=== PATIENT | female | born 1945 | race Caucasian/White ===

== ENCOUNTER 2016-09-22 11:54 | Inpatient (IN) ==
[2016-09-22 13:53] LABS: BASO% 0.2 % (0.0-0.8); EOS# 0.02 X1000 (0.0-0.7); EOS% 0.2 % (0.0-10.0); HEMATOCRIT 44.5 % (37.0-47.0); HEMOGLOBIN 16.7 g/dL (12.0-16.0); IMM GRAN# 0.24 X1000 (0.0-0.04); IMM GRAN% 2.1 % (0.0-0.5); LYMPH# 1.34 X1000 (1.2-3.4); LYMPH% 11.6 % (20.5-51.1); MANUAL DIFF NEEDED? NO; MCH 32.6 PG (27-31); MCHC 37.5 g/dL (33-37); MCV 86.7 FL (81-99); MONO# 2.01 X1000 (0.11-0.59); MONO% 17.4 % (1.7-9.3); NEUT% 68.5 % (42.2-75.2); PLT 399 X1000 (130-400); RBC 5.13 XMIL (4.2-5.4)
[2016-09-22 14:05] LABS: ALBUMIN 3.7 g/dL (3.5-5.0); CALCIUM 8.9 mg/dL (8.8-10.2); POTASSIUM 2.7 mmol/L (3.5-5.1); TOTAL BILIRUBIN 0.42 mg/dL (0.20-1.00); TOTAL PROTEIN 7.2 g/dL (6.3-8.3)
--- NOTE | 2016-09-22 16:35 | PROVIDER DOCUMENTATION ---
This chart was entered by Sol Aguilera, acting as scribe for Brian Martínez MD. HPI-Abdominal Pain/GI Problem - General Chief Complaint: Abdominal Pain Stated Complaint: N/V/D Time Seen by Provider: 09/22/16 14:26 Source: patient, family Allergies/Adverse Reactions: Patient Allergies Allergy/AdvReac Type Severity Reaction Status Date / Time Sulfa (Sulfonamide AdvReac SWELLING Verified 06/18/14 08:36 Antibiotics) Home Medications: Home Medication List Medication Instructions Recorded Confirmed Last Taken Type Aspirin [Aspirin EC] 2 tab PO DAILY 06/11/14 06/18/14 06/18/14 History Cholecalciferol (Vitamin D3) 2,000 unit PO DAILY 06/11/14 06/18/14 06/18/14 History [D3-2000] Cyanocobalamin (Vitamin B-12) 2,000 mcg PO DAILY 06/11/14 06/18/14 06/18/14 History [Vitamin B-12] Fluoxetine [Prozac] 20 mg PO TID 06/11/14 06/18/14 06/18/14 History Gabapentin 300 mg PO HS 06/11/14 06/18/14 06/18/14 History Levothyroxine Sodium 100 mcg PO DAILY 06/11/14 06/18/14 06/18/14 History Lisinopril/Hydrochlorothiazide 1 each PO DAILY 06/11/14 06/18/14 06/18/14 History [Lisinopril-Hctz 20-12.5 mg Tab] Metformin HCl 850 mg PO BID 06/11/14 06/18/14 06/18/14 History [place]-3 Fatty Acids [Fish Oil] 1,000 mg PO DAILY 06/11/14 06/18/14 06/18/14 History Omeprazole 20 mg PO DAILY 06/11/14 06/18/14 06/18/14 History Pravastatin Sodium 20 mg PO DAILY 06/11/14 06/18/14 06/18/14 History Tramadol HCl [Ultram] 50 mg PO DIRECTED 06/18/14 06/18/14 06/17/14 History - History of Present Illness-ABD Nature of Presenting Problems: pt is a 71 year old female present to the Er with cc of abdominal pain, n,v, diarrhea for the past week. family at bedside. Family states that last week pt woke up with runny green diarrhea and it smelled very bad. Pt sister states she was sick as well but she got better by friday and they do not live together. Pt family also states she was seen by her PCP on Friday and was given Flagyl ABX. Pt has hx of DM and takes metformin but family states she is uncontrolled and her sugar bottoms out often. Family states she has only eating 2 oz of jello and that was yesterday. denies chest pain, cough or fever Abdominal Pain Onset Location: reports: generalized abdomen Pain Radiation: reports: no radiation Quality of Pain: reports: aching Severity in ED: reports: moderate Onset/Duration: reports: 1 week ago Timing: reports: still present Activities at Onset: reports: none Exposure to sick contacts?: Yes Modifying Factors: improves with: nothing Associated Symptoms: reports: diarrhea, nausea, vomiting. denies: fever/chills Last BM: other (Diarrhea for 1 week) Dark Stools Present?: reports: none noticed Rectal Bleeding: reports: none Rectal Pain: reports: none Emesis Description: reports: none Bruising or Bleeding Gums?: No Similar Symptoms Previously?: Yes Recently seen or treated by another doctor?: Yes Review of Systems - Adult - REVIEW OF SYSTEMS - ADULT Constitutional: denies: chills, fever Eyes: denies: discharge, dry eyes, decreased vision, blurred vision Ears, Nose, Mouth & Throat: reports: no symptoms reported Cardiovascular: denies: chest pain, edema, heart murmur Respiratory: denies: cough Gastrointestinal: reports: abdominal pain, diarrhea, nausea, vomiting Genitourinary: denies: dysuria, discharge, frequency, flank pain Musculoskeletal: reports: no symptoms reported Integumentary: reports: no symptoms reported Neurological: reports: no symptoms reported Psychiatric: reports: no symptoms reported Endocrine: reports: no symptoms reported Hematologic/Lymphatic: reports: no symptoms reported Allergic/Immunologic: reports: no symptoms reported All Other Systems: Reviewed and Negative Past History - Adult - PAST MEDICAL HISTORY-ADULT Review of Records: reports: Old Records Reviewed, Nursing Assessment Review Major Childhood Illnesses: reports: denies history Cardiovascular: reports: HTN Respiratory: reports: denies history Neurological: reports: denies history Psychiatric: reports: denies history Endocrine/Immune: reports: Diabetes - PRIOR SURGERIES/PROCEDURES Surgical/Procedure History: reports: reviewed, not pertinent - IMMUNIZATION STATUS Childhood Immunizations: See Nurse Assessment Flu Vaccine: See Nurse Assessment - FAMILY HISTORY Family History: reviewed, not pertinent Physical Exam-General - PHYSICAL EXAM-ADULT Initial Vital Signs Reviewed: Yes - CONSTITUTIONAL General Appearance: alert, mild distress - EYES Eyes: PERRL/EOMI, pink conjunctivae - NECK Neck: non-tender, full range of motion - RESPIRATORY Respiratory: chest non-tender, lungs clear, normal breath sounds, no pleuratic chest pain, no respiratory distress, no accessory muscle use - CARDIOVASCULAR Cardiovascular: no edema, no gallop, no JVD - GASTROINTESTINAL (ABDOMEN) Abdominal Exam: soft, tenderness (Generalized abdomen TTP) - MUSCULOSKELETAL Extremity: non-tender - SKIN Integumentary: normal color, warm/dry - NEUROLOGIC Neurologic: grossly normal - PSYCHIATRIC Psych/Mental Status: normal mood/affect, normal thought content, normal thought process, oriented x 3 Progress - PLAN OF CARE/RESULTS Progress/Plan/Lab Results: Vital Signs - 8 hr 09/22/16 12:27 Temperature 97.4 F L Pulse Rate 93 H Respiratory Rate 16 Blood Pressure 101/77 O2 Sat by Pulse Oximetry 100 Laboratory Results - last 24 hr 09/22/16 09/22/16 12:45 12:45 WBC 11.56 H RBC 5.13 Hgb 16.7 H Hct 44.5 MCV 86.7 MCH 32.6 H MCHC 37.5 H RDW Std Deviation 12.0 Plt Count 399 MPV 9.0 Immature Gran % (Auto) 2.1 H Neut % (Auto) 68.5 Lymph % (Auto) 11.6 L [place] % (Auto) 17.4 H Eos % (Auto) 0.2 Baso % (Auto) 0.2 Immature Gran # (Auto) 0.24 H Neut # (Auto) 7.93 H Lymph # (Auto) 1.34 [place] # (Auto) 2.01 H Eos # (Auto) 0.02 Baso # (Auto) 0.02 Sodium 119 L* Potassium 2.7 L Chloride 73 L Carbon Dioxide 19 L Anion Gap 27 BUN 22 Creatinine 1.0 H Estimated GFR/1.73 m2 55 BUN/Creatinine Ratio 22 Glucose 119 H Calculated Osmolality 245 Calcium 8.9 Total Bilirubin 0.42 AST 20 ALT 12 Alkaline Phosphatase 106 H Total Protein 7.2 Albumin 3.7 Globulin 3.5 Albumin/Globulin Ratio 1.1 Amylase 74 Lipase 56 Orders Category Date Time Status Saline Loc DIRECTED Care 09/22/16 12:31 Active NPO Diet 09/22/16 12:31 Active AMYLASE [CHEM] Stat Lab 09/22/16 12:45 Completed CBC WITH ELECTRONIC DIFF [HEME] Stat Lab 09/22/16 12:45 Completed COMPREHENSIVE METABOLIC PANEL [CHEM] Stat Lab 09/22/16 12:45 Completed LIPASE [CHEM] Stat Lab 09/22/16 12:45 Completed URINALYSIS W/POSS RFLX CULT-1 [URINALYSIS] Stat Lab 09/22/16 12:31 Uncollected Result Diagrams: 09/22/16 12:45 09/22/16 12:45 - CONSULTS/PCP/HOSPITALIST Notification #1 *Consult/PCP/Hospitalist*: Dr. Davis Time Discussed: 16:32 Consult Disposition: Will see in ED, Admit Departure - Departure Date of Disposition Decision: 09/22/16 Time of Disposition Decision: 16:32 DIAGNOSIS: Diarrhea, Dehydration, Hyponatremia, Hypokalemia Disposition: ADMITTED INPATIENT 09 Certified Medical Emergency: Emergent Condition: Stable Referrals and Follow-Ups: Mil Barrera [Primary Care Provider] - - Critical Care Note This patient required my direct & personal management of CC.: No This chart was documented by the indicated scribe, (Sol Aguilera) and accurately reflects the services I performed and decisions made by me, Brian Martínez MD, as attested by the provider's signature.
[2016-09-22] MEDS ORDERED: KLOR-CON PO ONE (16:36)
[2016-09-22] MEDS ORDERED: NS 1,000 ML IV ONE (16:36)
[2016-09-22] MEDS ORDERED: ZOFRAN IV ONE (16:36)
[2016-09-22 18:49] LABS: URINE MICRO REVIEW NEEDED? NO; URINE SOURCE CLEAN CATCH
[2016-09-22 18:52] LABS: BILIRUBIN URINE NEGATIVE (NEGATIVE); BLOOD URINE NEGATIVE (NEGATIVE); COLOR YELLOW; GLUCOSE URINE NEGATIVE (NEGATIVE); LEUKOCYTES URINE MODERATE (NEGATIVE); NITRITE URINE NEGATIVE (NEGATIVE); PROTEIN URINE NEGATIVE (NEGATIVE); SP GRAVITY URINE 1.005; TURBIDITY URINE CLEAR (CLEAR); UROBILINOGEN URINE NORMAL (NORMAL)
[2016-09-22 18:54] LABS: UR EPITHELIAL CELLS <10 /HPF (<10); URINE BACTERIA NEGATIVE /HPF; URINE CULTURE NEEDED? YES; URINE RBC <10 /HPF (<10)
[2016-09-22] MEDS ORDERED: POTASSIUM CHLORIDE 20 MEQ/SWI 20 MEQ/100 ML IVPB IV SCH (19:00)
[2016-09-22] MEDS ORDERED: ULTRAM PO PRN (19:44)
[2016-09-22] MEDS ORDERED: HUMULIN R SUBQ ONE (19:44)
[2016-09-22] MEDS: NS 1,000 ML IV SCH (21:13)
[2016-09-22] MEDS: NEURONTIN PO SCH (21:13)
[2016-09-22] MEDS: LOVENOX SUBQ SCH (21:13)
[2016-09-22] MEDS: NORCO-7.5 PO PRN (21:13)
[2016-09-23] MEDS: FLAGYL 500 MG/NS 500 MG/100 ML IVPB IV SCH ×3 (00:30→15:23)
--- NOTE | 2016-09-23 00:49 | HISTORY AND PHYSICAL ---
CHIEF COMPLAINT: Diarrhea for 2 weeks, and unable to eat and drink. HISTORY OF PRESENT ILLNESS: The patient is a 71-year-old white female, who presented to the emergency room with 2 weeks' history of not able to eat and drink. The patient saw her primary care physician and was started on Flagyl, with a presumption of C. difficile. The patient continued to have diarrhea, and has not been able to take anything by mouth, including her Flagyl. She continued to have green stool, at least 10-20 times a day. The patient reports having a positive C. difficile contact from her siblings, who were in a residential who she has been caring for, and who had C. difficile recently. She denies having any fever or chills, although her daughter stated that she has kept her room as cold as she could keep it. She denies having any chest pain or shortness of breath. She does report having significant nausea and vomiting, has not been able to eat or drink anything, has not been able to keep any of her medications down. The patient was taking Zofran that was given by her primary care physician, Dr. Barrera, which seemed to help her nausea to some degree. She does have significant abdominal discomfort. Nothing seemed to make it better or make it worse. PAST MEDICAL HISTORY: 1. Depression. 2. Peripheral neuropathy. 3. Type 2 diabetes. 4. Hypertension. 5. GERD. 6. Hyperlipidemia. 7. Arthritis. PAST SURGICAL HISTORY: The patient has had her gallbladder removed, had a hysterectomy. She had several back surgeries. ALLERGIES: The patient is allergic to sulfa drugs. FAMILY HISTORY: Reviewed and were noncontributory. SOCIAL HISTORY: She denied tobacco, alcohol, or drugs. HOME MEDICATIONS: 1. Aspirin 81 mg p.o. 2 tabs daily. 2. Vitamin D 2000 international units daily. 3. B12 2000 mcg p.o. daily. 4. Prozac 20 mg p.o. once a day. 5. Gabapentin 300 mg at bedtime. 6. Levothyroxine 100 mcg p.o. daily. 7. Zestoretic 1 tablet p.o. daily. 8. Metformin 850 one tablet p.o. daily. 9. [place]-3 one tablet p.o. daily. 10. Omeprazole 20 mg p.o. daily. 11. Pravastatin 20 mg p.o. at bedtime. 12. Ultram 50 mg p.o. daily. REVIEW OF SYSTEMS: Twelve systems were reviewed and were negative, except for what is mentioned in the HPI. PHYSICAL EXAMINATION: VITAL SIGNS: Blood pressure 139/81, pulse of 66, respirations 27, temperature of 99. GENERAL APPEARANCE: Thin white female in moderate distress. HEENT: Anicteric sclerae,, clear conjunctivae. NECK: Supple. No JVD. No bruit. CARDIOVASCULAR: S1, S2. Normal rate and rhythm. No murmur, rubs, or gallops. PULMONARY: Clear to auscultation bilaterally. GASTROINTESTINAL: Mildly tender to palpations throughout. Hyperactive bowel sounds. MUSCULOSKELETAL: No clubbing, cyanosis, or edema. LABORATORY DATA: White count 11.56, hemoglobin 16.7, hematocrit of 44.5, platelets of 399,000. Chemistries: Sodium 119, potassium 2.7, chloride 73, carbon dioxide 19, BUN 22, creatinine 1.0. Liver function tests within normal limits. Glucose 119. ASSESSMENT AND PLAN: This is a 71-year-old white female admitted to the hospital for abdominal pain, diarrhea, dehydration, and electrolyte abnormalities. 1. Diarrhea, concerning for C. difficile. We started treating the patient for C. difficile. We will send stool for antigen and stool for culture. 2. Severe dehydration, with hypokalemia and hyponatremia. Will hold her Zestoretic. Start the patient on IV fluids. We will replete her potassium. Will check her chemistry in the morning. 3. Diabetes type 2. Start the patient on sliding scale insulin. 4. Hypertension. Will start the patient on her lisinopril, but will hold her diuretics. 5. Hyperlipidemia. We will continue her on Pravachol and her fish oil. 6. Hypothyroidism. Continue Synthroid. 7. Deep venous thrombosis prophylaxis. Put the patient on Lovenox. CODE STATUS: The patient is a full code. cc: Mil Barrera MD
--- NOTE | 2016-09-23 06:06 | Diag Imaging Result Doc PS360 ---
EXAM: ABDOMEN/PELVIS W/WO CONTRAST HISTORY: abd pain TECHNIQUE: COMPARISON: None. FINDINGS: Without: No renal stones. No hydronephrosis. Mild thickening to the small bowel holliday distally in the right lower quadrant. Questionable thickening of the transverse colon in the left upper quadrant. Questionable mild colonic wall thickening in the descending colon. With contrast: The gallbladder has been removed. There has been a prior contrast bypass procedure. Normal spleen, liver, pancreas, and adrenal glands. No renal mass. Prominent atherosclerosis. No aortic aneurysm. The uterus is been removed. No pelvic mass. Urinary bladder is moderately distended and appears normal. It is low lying. IMPRESSION: 1.Enteritis and possible colitis 2.Cholecystectomy, gastric bypass, and hysterectomy 3.Pelvic floor weakening 4.A preliminary report was given at 11:13 PM Electronically signed by Carlos An 09/23/2016 6:04 AM
--- NOTE | 2016-09-23 07:45 | Diag Imaging Result Doc PS360 ---
FLAT/UPRIGHT ABD/1 VIEW CHEST - 09/22/2016 INDICATION: N/V/diarrhea/abd pain TECHNIQUE: Three views COMPARISON: None FINDINGS: The chest is clear. There is a nonobstructive bowel gas pattern. No free air or abnormal calcifications. IMPRESSION: Negative exam. Electronically signed by Sreedhar Sanders 09/23/2016 7:42 AM
[2016-09-23 07:50] LABS: HEMATOCRIT 37.8 % (37.0-47.0); HEMOGLOBIN 14.2 g/dL (12.0-16.0); MCH 32.7 PG (27-31); MCHC 37.6 g/dL (33-37); MCV 87.1 FL (81-99); MPV 8.8 FL (7.4-10.4); RBC 4.34 XMIL (4.2-5.4)
[2016-09-23 07:59] LABS: AGAP 20; BUN 10 mg/dL (8-22); CALCIUM 8.1 mg/dL (8.8-10.2); CHLORIDE 84 mmol/L (98-107); COSMO 250; POTASSIUM 2.7 mmol/L (3.5-5.1); SODIUM 125 mmol/L (136-145); TCO2 21 mmol/L (25-35)
[2016-09-23] MEDS: PROZAC PO SCH (08:19)
[2016-09-23] MEDS: SYNTHROID PO SCH (08:19)
[2016-09-23] MEDS: PRAVACHOL PO SCH (08:19)
[2016-09-23] MEDS: NS 1,000 ML IV SCH ×3 (08:20→23:07)
[2016-09-23] MEDS: NORCO-7.5 PO PRN ×2 (08:26→20:42)
--- NOTE | 2016-09-23 15:41 | PROGRESS NOTE ---
DATE: 09/23/2016 SUBJECTIVE.: The patient reports feeling better with diarrhea 3 times per day today only. No fever or chills reported. OBJECTIVE: Vital Signs: Temperature 98.1 degrees, heart rate 109, respiratory rate 18, blood pressure 117/53, O2 saturation 95% on room air. General Examination: This is a 71-year-old female lying in bed in no acute distress. HEENT: Head is normocephalic, atraumatic. Anicteric sclerae and pale conjunctivae. Mucous membranes moist. Neck: Supple. No JVD noted. No carotid bruits. No thyromegaly. Cardiovascular: S1, S2 heard. No murmurs, gallops, or rubs. Regular rate and rhythm. Respiratory: Clear bilaterally to auscultation. No work of breathing or using accessory muscles. Abdomen: Soft. Diffuse tenderness to palpation but there is no signs of peritoneal irritation. Hyperactive bowel sounds. Extremities: No clubbing, cyanosis or edema. Peripheral pulses present in both legs. Neurological: Patient alert, oriented x3. Able to move 4 extremities. Cranial nerves 2-12 grossly normal. LABORATORY DATA: White cell count 11.39. Sodium 134, potassium 2.7, chloride 84, bicarbonate 21, creatinine 0.7. ASSESSMENT AND PLAN: 1. Diarrhea. We have ordered a C. difficile test but unfortunately it seems like the sample was not recollected although patient reports that she did. In any case, the patient has been on IV fluids and metronidazole. Will continue with the same management. 2. Hyponatremia. So the sodium is better from 119 to 125. Will continue with IV fluids. 3. Hypokalemia. Potassium is the same 2.7. We are going to replete this with potassium. 4. Hyperlipidemia. Will continue with Pravachol. 5. Hypothyroidism. Will continue with home doses of Synthroid. 6. Deep vein thrombosis prophylaxis on Lovenox. cc: Perry Angelo MD
[2016-09-23] MEDS: POTASSIUM CHLORIDE 60 MEQ in NS 500 ML IV SCH (16:23)
[2016-09-23] MEDS: LOVENOX SUBQ SCH (20:25)
[2016-09-23] MEDS: NEURONTIN PO SCH (20:25)
[2016-09-24] MEDS: FLAGYL 500 MG/NS 500 MG/100 ML IVPB IV SCH ×5 (01:00→19:00)
[2016-09-24] MEDS: POTASSIUM CHLORIDE 60 MEQ in NS 500 ML IV SCH ×4 (03:59→20:46)
[2016-09-24] MEDS: NORCO-7.5 PO PRN ×3 (05:48→20:45)
[2016-09-24] MEDS: SYNTHROID PO SCH ×2 (05:49→06:50)
[2016-09-24] MEDS: PROZAC PO SCH (08:46)
[2016-09-24] MEDS: PRAVACHOL PO SCH (08:46)
[2016-09-24] MEDS: NS 1,000 ML IV SCH ×3 (09:05→20:47)
[2016-09-24 11:35] LABS: BASO% 0.3 % (0.0-0.8); EOS# 0.05 X1000 (0.0-0.7); EOS% 0.5 % (0.0-10.0); HEMATOCRIT 33.9 % (37.0-47.0); HEMOGLOBIN 12.6 g/dL (12.0-16.0); IMM GRAN# 0.57 X1000 (0.0-0.04); IMM GRAN% 5.3 % (0.0-0.5); MCH 33.2 PG (27-31); MCHC 37.2 g/dL (33-37); MCV 89.4 FL (81-99); MONO# 1.57 X1000 (0.11-0.59); MONO% 14.7 % (1.7-9.3); MPV 8.5 FL (7.4-10.4); NEUT% 64.2 % (42.2-75.2); PLT 393 X1000 (130-400); RBC 3.79 XMIL (4.2-5.4)
[2016-09-24 11:37] LABS: MANUAL DIFF NEEDED? YES
[2016-09-24 11:59] LABS: AGAP 10; BUN 4 mg/dL (8-22); CALCIUM 7.2 mg/dL (8.8-10.2); CHLORIDE 97 mmol/L (98-107); COSMO 258; POTASSIUM 3.2 mmol/L (3.5-5.1); SODIUM 131 mmol/L (136-145); TCO2 24 mmol/L (25-35)
[2016-09-24 12:04] LABS: LYMPHS 16 % (21-51); MONO 9 % (1-9)
--- NOTE | 2016-09-24 14:41 | PROGRESS NOTE ---
DATE: 09/24/2016 SUBJECTIVE: The patient reports having had some rectal bleeding today, this morning. Not feeling dizzy. She is still having diarrhea, like 4-5 times per day and, yesterday, black stools were reported. OBJECTIVE: Vital Signs: Temperature 97.8 degrees, heart rate 69, respiratory rate 18, blood pressure 112/57, O2 saturation 98% on room air. General: This is a 71-year-old, female, lying in bed in no acute distress. HEENT: Head is normocephalic and atraumatic. Anicteric sclerae and pale conjunctivae. Mucous membranes dry. Neck supple. No JVD noted. No carotid bruits. No lymphadenopathy. No thyromegaly. Cardiovascular: S1, S2 heard. No murmurs, gallops, or rubs. Regular rate and rhythm. Respiratory: Clear bilaterally to auscultation. No work of breathing or using accessory muscles. Abdomen soft, nontender to palpation. Bowel sounds present. No organomegaly. Extremities: No clubbing, cyanosis, or edema. Peripheral pulses present in both legs. Neurologic: Patient is alert and oriented x3. Moves 4 extremities. Cranial nerves 2-12 grossly normal. LABORATORY DATA: 1. White cell count 10.6. Hemoglobin 12.6, hematocrit 33.9, platelets 393,000. Sodium 131, potassium 3.2, chloride 97, bicarb 24. BUN 4, creatinine 0.5. ASSESSMENT AND PLAN: 1. Acute gastroenteritis. Clostridium difficile returned negative. Patient is on Flagyl and Levaquin. It has been added today to her current treatment. We will see how this patient does. We will continue with IV fluids as well. 2. Hyponatremia. It is getting better. Today, it is 131. We will continue with the same management. 3. Hypokalemia. Patient's potassium is the patient's potassium is still low. We will provide potassium supplementation. 4. Hyperlipidemia. We will continue with Pravachol. 5. Hypothyroidism. We will continue with home doses of Synthroid. 6. Deep vein thrombosis prophylaxis with Lovenox. 7. Rectal bleeding. Because of this episode of bleeding, we prefer to have field sales consultant on board to see how this patient does. cc: Perry Angelo MD
[2016-09-24] MEDS: ZOFRAN IV PRN ×2 (18:26→21:42)
[2016-09-24] MEDS: NEURONTIN PO SCH (20:46)
[2016-09-24] MEDS: LEVAQUIN 750 MG in NS 150 ML IV SCH (20:46)
[2016-09-24] MEDS: PROTONIX IV SCH (21:42)
[2016-09-24] MEDS: SODIUM CHLORIDE 0.9% INJ SCH (21:42)
[2016-09-25] MEDS: NS 1,000 ML IV SCH ×4 (00:45→21:37)
[2016-09-25] MEDS: FLAGYL 500 MG/NS 500 MG/100 ML IVPB IV SCH ×4 (00:58→22:38)
[2016-09-25] MEDS: NORCO-7.5 PO PRN ×2 (05:32→17:20)
[2016-09-25] MEDS: ZOFRAN IV PRN (06:26)
[2016-09-25 06:51] LABS: BASO% 0.3 % (0.0-0.8); EOS# 0.12 X1000 (0.0-0.7); EOS% 1.1 % (0.0-10.0); HEMATOCRIT 33.2 % (37.0-47.0); HEMOGLOBIN 12.2 g/dL (12.0-16.0); IMM GRAN# 0.57 X1000 (0.0-0.04); LYMPH# 1.39 X1000 (1.2-3.4); LYMPH% 12.3 % (20.5-51.1); MANUAL DIFF NEEDED? YES; MCHC 36.7 g/dL (33-37); MCV 89.7 FL (81-99); MONO# 1.73 X1000 (0.11-0.59); MONO% 15.3 % (1.7-9.3); MPV 8.5 FL (7.4-10.4); PLT 390 X1000 (130-400)
[2016-09-25 06:59] LABS: AGAP 10; BUN 2 mg/dL (8-22); CALCIUM 7.1 mg/dL (8.8-10.2); CHLORIDE 99 mmol/L (98-107); COSMO 262; POTASSIUM 3.6 mmol/L (3.5-5.1); SODIUM 133 mmol/L (136-145); TCO2 24 mmol/L (25-35)
[2016-09-25 07:15] LABS: BANDS 14 % (0-1); LYMPHS 12 % (21-51); MONO 8 % (1-9)
--- NOTE | 2016-09-25 11:23 | CONSULTATION ---
DATE OF CONSULTATION: 09/24/2016 HISTORY OF PRESENT ILLNESS: A 71-year-old lady, presented with a 2-week history of anorexia, abdominal discomfort, and diarrhea for which she was started on Flagyl with a presumptive diagnosis of C. difficile colitis but with no response. She was having 10-20 stools a day and getting progressively weak. Was admitted for further evaluation. She had a CT scan done on admission which showed colitis. PAST MEDICAL HISTORY: Depression, neuropathy, type 2 DM, hypertension, GERD, arthritis. PAST SURGICAL HISTORY: Gallbladder removed, hysterectomy, back surgeries. ALLERGIES: Sulfa. FAMILY HISTORY: Negative for colitis or cancer. SOCIAL HISTORY: Does not smoke, drink, or use drugs. HOME MEDICATIONS: 1. Aspirin 81. 2. Vitamin D. 3. B12. 4. Prozac 20. 5. Gabapentin 300. 6. Levothyroxine 100 mcg daily. 7. Metformin 850 daily. 8. Omeprazole 20 daily. 9. Pravastatin 20 at bedtime. 10. Ultram 50 daily. REVIEW OF SYSTEMS: Twelve points are negative other than HPI. PHYSICAL EXAMINATION: Vital Signs: Physical examination revealed this lady laying in bed, looks weak. Blood pressure 130/80, pulse 66, respirations 27, temperature 99 degrees. General: Thin, white lady. Appears weak. HEENT: No scleral icterus. No conjunctival pallor. Mucosa dry. Neck: Supple. No JVD. Heart: S1, S2. No murmur. Pulmonary: Clear. Abdomen: Soft. Generally tender throughout. Hyperactive bowel sounds. Extremities: No cyanosis, clubbing. MATERIALS ASSISTANT: No focal neurological deficit. LABORATORY DATA: White count 11, hemoglobin 16.7, hematocrit 44.5, platelets normal. Sodium low at 119, potassium 2.7, chloride 73, glucose 119. IMPRESSION AND PLAN: 1. Diarrhea, on Flagyl, nonresponsive. 2. Colitis on the CT scan. 3. Severe dehydration and hemoconcentration with hypokalemia and hyponatremia. 4. Diabetes type 2. 5. Hypertension. 6. Hyperlipidemia. 7. Hypothyroidism. PLAN: I agree with Flagyl. We will check the C. difficile. We will also do endoscopy. If she does not show response, we may have to try her on vancomycin. Further evaluation depending on the endoscopy findings which we will decide tomorrow. cc: Cuauhtemoc Braun MD
[2016-09-25] MEDS: PROTONIX IV SCH ×2 (11:56→21:38)
[2016-09-25] MEDS: SODIUM CHLORIDE 0.9% INJ SCH ×2 (11:56→21:38)
[2016-09-25] MEDS ORDERED: XYLOCAINE-MPF 2% ONE (13:39)
[2016-09-25] MEDS ORDERED: DIPRIVAN 1% ONE (15:11)
--- NOTE | 2016-09-25 15:25 | OPERATIVE NOTE ---
PROCEDURE DATE: 09/25/2016 REFERRING PHYSICIAN: Hector Recinos MD PRIMARY CARE DOCTORS: Mil Barrera MD TITLE OF PROCEDURE: 1. Esophagogastroduodenoscopy. 2. Colonoscopy with cecal polypectomy and left colon biopsies. PREOPERATIVE DIAGNOSES: 1. Abdominal pain, nausea, vomiting, diarrhea, getting worse. Negative stool studies. 2. Previous history of Clostridium difficile colitis. 3. History of gastric bypass. 4. Reflux disease. POSTOPERATIVE DIAGNOSIS: 1. Normal esophagus and tongue. 2. Z-line is at 36 cm. 3. Evidence of gastric bypass, gastric pouch measuring 6 cm. 4. Gastroenteric anastomosis appears normal with visible staple mackey. Normal efferent loop of small intestine up to 20 cm past the anastomosis. 5. Evidence of stool in the right colon, cecum and ascending colon, thick stool which was lavaged. There was evidence of a polyp measuring 5 mm in the cecum which was removed with cold biopsy polypectomy. 6. Evidence of colitis starting at the transverse colon, extended all the way to the rectum in the form of erythema, friability, erosions, and superficial ulcerations, suggesting ulcerative colitis. 7. Internal hemorrhoids on retroflexion irritated, inflamed. ESTIMATED BLOOD LOSS: Minimal. COMPLICATIONS: None. ANESTHESIA: Monitored anesthesia care per the anesthesiologist. SPECIMEN: 1. Cecal polyp. 2. Left colon biopsies, random. 3. Stool specimen for Clostridium difficile PCR, stool culture, ova and parasites. OPERATION IN DETAIL: After informed consent from the patient, explaining the risks, benefits, indications, alternatives, the patient was taken for EGD and colonoscopy. The risks of the procedure, including infection, bleeding, pain, trauma to the surrounding structures, perforation, explained to the patient among others and she acknowledged understanding and agreed to procedure. The patient was brought to the OR, turned in the left position. A bite block was placed in patient mouth. After adequate monitored anesthesia, the upper endoscope was introduced through the oral vestibule all the way to the small intestine. The esophagus was normal the entire length, Z-line at 30 cm with evidence of gastric bypass. Gastric pouch measured 6 cm. The anastomosis appeared normal with no evidence of any ulcerations. There were visible staple mackey noted at the anastomosis. The afferent loop was examined at 20 cm past anastomosis which appeared normal. The air was aspirated as the scope was withdrawn. The patient turned around. Rectal exam was performed which revealed normal rectal tone. No masses were felt. The colonoscope was introduced and was traversed all the way to the cecum. Cecum was identified using landmarks, ileocecal valve and appendiceal orifice. There was evidence of 5 mm polyp sessile in the cecum which was removed using cold biopsy polypectomy. There was evidence of thick stool in the cecum, ascending colon, which was lavaged. Colitis was noted starting at transverse colon, and extended all the way to the rectum. This mucosa showed evidence of erythema, friability, erosions, and superficial ulcerations. This was biopsied randomly. Stool was also collected to send for stool studies. Retroflexion in the rectum revealed internal hemorrhoids which were inflamed. Grade 2. The air was aspirated as the scope was withdrawn. The patient tolerated the procedure and is currently monitored in recovery in stable condition. I discussed the findings with the patient's family in the waiting area and all questions. RECOMMENDATIONS: 1. The patient will be continued on proton pump inhibitors for now. 2. The patient will follow start on Culturelle 1 capsule p.o. b.i.d. for 6 days. 3. The patient will follow up with me in the clinic in 1 month after discharge. 4. We will continue patient on Flagyl for now for a total of 10 days. 5. We will check inflammatory bowel disease panel and follow the colon biopsy results. If the colon biopsy results are positive for ulcerative colitis, we may give her a course of Entocort 9 mg once daily for 3 months. 6. Further recommendations to follow pending the above. cc: MD Mil John MD Alexis R. Penot, MD
--- NOTE | 2016-09-25 16:41 | PROGRESS NOTE ---
DATE: 09/25/2016 SUBJECTIVE: Patient reports feeling fine. No episodes of bleeding at this time. OBJECTIVE: Vital Signs: Temperature 98.3 degrees, heart rate 67, respiratory 19, blood pressure 134/72, O2 saturation 97% on room air. General Examination: This is a 71-year-old, female lying in bed, in no acute distress. HEENT: Head is normocephalic, atraumatic. Anicteric sclerae and pale conjunctivae. Mucous membranes moist. Neck: Supple. No JVD noted. No carotid bruits. No lymphadenopathy. No thyromegaly. Cardiovascular: S1 and S2 heard. No murmurs, gallops, or rubs. Regular rate and rhythm. Respiratory: Clear bilaterally to auscultation. No work of breathing or using accessory muscles. Abdomen: Soft, nontender to palpation. Bowel sounds present. No organomegaly. Extremities: No clubbing, cyanosis, or edema. Peripheral pulses present in both legs. Neurological: Patient is alert and oriented x3. Able to move 4 extremities. Cranial nerves 2-12 grossly normal. LABORATORY DATA: White cell count 11.31, hemoglobin 12.2, hematocrit 33.2, platelets 390,000 with sodium 133. Rest of the BMP unremarkable. ASSESSMENT AND PLAN: 1. Acute gastroenteritis. C. difficile is negative. Because of rectal bleeding an endoscopy and colonoscopy has been ordered and actually did show colitis that is compatible with ulcerative colitis. In any case, recommendations from GI is to continue with Levaquin and with Flagyl to complete 10 days. The patient can be discharged from the hospital tomorrow. The patient will have a followup in the office with Dr. Andrade. 2. Hyponatremia is almost resolved. We will continue with IV fluids. 3. Hypokalemia resolved. 4. Hyperlipidemia. We will continue with Pravachol. 5. Hypothyroidism. Will continue with home doses of Synthroid. 6. Deep vein thrombosis prophylaxis with Lovenox. Actually this medication has been held because of the bleeding. cc: Perry Angelo MD
[2016-09-25] MEDS: PRAVACHOL PO SCH (17:20)
[2016-09-25] MEDS: SYNTHROID PO SCH (17:20)
[2016-09-25] MEDS: PROZAC PO SCH (17:20)
[2016-09-25] MEDS ORDERED: MIRALAX PO SCH (21:00)
[2016-09-25] MEDS ORDERED: ANUSOL-HC SUPP PR SCH (21:00)
[2016-09-25] MEDS: LEVAQUIN 750 MG in NS 150 ML IV SCH (21:38)
[2016-09-25] MEDS: NEURONTIN PO SCH (21:38)
[2016-09-25] MEDS: CULTURELLE PO SCH (21:38)
[2016-09-26] MEDS: ZOFRAN IV PRN ×2 (00:33→04:10)
[2016-09-26] MEDS: FLAGYL 500 MG/NS 500 MG/100 ML IVPB IV SCH ×2 (04:10→09:05)
[2016-09-26] MEDS: SYNTHROID PO SCH (06:29)
[2016-09-26 07:02] LABS: BASO% 0.2 % (0.0-0.8); EOS# 0.05 X1000 (0.0-0.7); EOS% 0.5 % (0.0-10.0); HEMOGLOBIN 11.3 g/dL (12.0-16.0); IMM GRAN# 0.49 X1000 (0.0-0.04); IMM GRAN% 5.1 % (0.0-0.5); LYMPH# 0.98 X1000 (1.2-3.4); LYMPH% 10.3 % (20.5-51.1); MANUAL DIFF NEEDED? YES; MCH 32.9 PG (27-31); MCHC 36.5 g/dL (33-37); MCV 90.4 FL (81-99); MONO% 12.6 % (1.7-9.3); MPV 8.3 FL (7.4-10.4); NEUT% 71.3 % (42.2-75.2); PLT 354 X1000 (130-400); RBC 3.43 XMIL (4.2-5.4)
[2016-09-26 07:32] LABS: AGAP 1; BUN 1 mg/dL (8-22); CHLORIDE 100 mmol/L (98-107); COSMO 256; POTASSIUM 3.8 mmol/L (3.5-5.1); SODIUM 130 mmol/L (136-145); TCO2 29 mmol/L (25-35)
[2016-09-26 07:33] LABS: BANDS 4 % (0-1); LYMPHS 6 % (21-51); MONO 10 % (1-9)
[2016-09-26 07:36] LABS: CALCIUM 6.8 mg/dL (8.8-10.2)
[2016-09-26] MEDS: SODIUM CHLORIDE 0.9% INJ SCH (09:05)
[2016-09-26] MEDS: PRAVACHOL PO SCH (09:05)
[2016-09-26] MEDS: PROTONIX IV SCH (09:05)
[2016-09-26] MEDS: PROZAC PO SCH (09:05)
[2016-09-26] MEDS: CULTURELLE PO SCH (09:05)
[2016-09-26] MEDS: NORCO-7.5 PO PRN ×2 (09:09→13:13)
[2016-09-26] MEDS ORDERED: ANUSOL-HC CREAM PR ONE (10:17)
[2016-09-26] MEDS: NS 1,000 ML IV SCH ×2 (10:57)
--- NOTE | 2016-09-26 11:49 | PROGRESS NOTE ---
DATE: 09/26/2016 SUBJECTIVE: Patient resting in bed. She complained of 4 loose small volume bowel movements since 4 a.m. this morning. Every time she goes to pee she passes a small amount of liquid stool. Sedimentation rate is 6, CRP is 1.84. Her stool studies have been rechecked and they are negative for enteric pathogens. Negative Giardia. Negative Cryptosporidium and negative C. difficile toxin and negative culture. The C. difficile PCR is currently pending. The patient denies any nausea or vomiting. She is able to tolerate her food this morning. She denies any fevers, rigors, chills. OBJECTIVE: Vital Signs: Temperature 97.8, pulse rate of 64, respiratory rate of 15, blood pressure 130/56, saturating 98% on room air. General Appearance: Moderately nourished, lying in bed, in no acute distress. HEENT: Pale conjunctivae. No icterus. Neck: Supple. Abdomen: Soft, nontender, nondistended. Bowel sounds noted. No rebound. No guarding. Extremities: No cyanosis, clubbing. Neurologic: She is alert, awake, oriented. LABORATORY DATA: Her hemoglobin and hematocrit is 11.3 and 31. White count of 9.5, platelet count of 354,000. Sodium 130, potassium 3.8, chloride 100, bicarbonate 29, anion gap of 1, BUN of 1, creatinine 0.5, glucose of 94, calcium is 6.8, CRP is 1.84. Albumin is 2.5. Her IBD panel is currently pending. Stool studies as described in HPI. IMPRESSION AND PLAN: 1. Colitis in the left colon up to the rectum and starting in transverse colon, status post biopsy. Evaluate for ischemic colitis versus ulcerative colitis. She will continue on Flagyl and Levaquin for now. We will keep her on Culturelle 1 capsule p.o. b.i.d. for 6 weeks. 2. Internal inflamed hemorrhoids. We will continue on hydrocortisone suppository at bedtime for 1-2 weeks. 3. She has constipation right colon. She will continue MiraLAX once at bedtime. 4. She is status post gastric bypass. She will need a multivitamin once daily and she needs to avoid NSAIDs. 5. If she starts having better control of symptoms she can probably go home to follow up with us in clinic in 3 weeks to discuss the colon biopsy results. If she does prove to have ulcerative colitis or IBD, we may have to start on specific treatment. In the interim, we may give her a short course of Entocort if her symptoms persist. The above findings were discussed with the patient and the nurse and also Dr. Recinos. cc: MD Hector John MD Jay Pohl, MD MTDD
[2016-09-26 15:10] VITALS: BP 138/68
--- NOTE | 2016-09-26 15:44 | DISCHARGE SUMMARY ---
ADMISSION DATE: 09/22/2016 DISCHARGE DATE: 09/26/2016 DISCHARGE DIAGNOSES: 1. Colitis, possibly ulcerative colitis with infectious colitis. 2. Hypertension. 3. Hypothyroidism. CONSULTATIONS: Neri Andrade MD. PROCEDURES: Colonoscopy with biopsy. HOSPITAL COURSE: Briefly this is a 71-year-old female presenting with protracted diarrhea admitted by Dr. Davis on the . She was placed on Flagyl. She had C. difficile and stool tests were completed. She was dehydrated likely from diuretics. Her initial BUN and creatinine were 22 and 1. She was hydrated. Dr. Braun was consulted. She did undergo a CT scan which showed enteritis and possible colitis. Dr. Braun recommended colonoscopy and Flagyl, and Dr. Andrade performed the procedure on the . I think he did an EGD and colonoscopy which found a cecal polyp and inflammation of the colon consistent with colitis with concern over ulcerative colitis. She had internal hemorrhoids. She had a polyp. She had evidence of gastric bypass. Clinically she improved with treatment which was mostly antibiotics. She was also placed on hydrocortisone suppositories. Her white count was 9.5 at discharge. Hemoglobin and hematocrit . Sodium was 130 on discharge, it had been 119. Potassium at 2.7. Both of these had corrected. Calcium was a little low at 6.8. DISCHARGE CONDITION: Stable. DISCHARGE MEDICATIONS: Medications have not been verified so I am going based on the list that was in the computer. 1. Aspirin 162 daily. 2. Entocort 9 mg daily for 2 weeks. 3. Vitamin D3, 2000 units daily. 4. Vitamin B12, 2000 units daily. 5. Prozac 20 t.i.d. 6. Gabapentin 300 daily. 7. Levaquin 500 daily for another 7 days. 8. Synthroid 100 daily. 9. Lisinopril/hydrochlorothiazide 20/12.5 daily. 10. Metformin 850 b.i.d. 11. Flagyl 500 t.i.d. for 7 days. 12. Fish oil. 13. Omeprazole 20 daily. 14. Pravastatin 20 daily. 15. Ultram p.r.n. DISCHARGE CONDITION: Stable. FOLLOWUP: She will need to follow up with Dr. Andrade in 1-2 weeks after biopsy results to decide about maintenance therapy for ulcerative colitis, also her PCP in 1 week to re-evaluate her sodium levels. DISCHARGE INSTRUCTIONS: At this point I would actually recommend stopping her hydrochlorothiazide because she was so hyponatremic on admission. I think keeping her on the lisinopril will be sufficient. We gave her prescriptions for the new medications. TOTAL TIME SPENT ON DISCHARGE: 35 minutes. cc: MD Neri Rivera MD Jay Pohl, MD
== END 2016-09-26 16:10 | disposition home or self-care (01) ==
LOC: ED 11:54 → SUATTDRO 19:36 → 3N 19:36
PROVIDERS: ATTEND Internal Medicine

== ENCOUNTER 2018-05-21 12:30 | Observation (INO) ==
[2018-05-21 14:00] LABS: BASO# 0.04 X1000 (0.0-0.2); BASO% 0.5 % (0.0-0.8); EOS# 0.15 X1000 (0.0-0.7); EOS% 1.9 % (0.0-10.0); HEMATOCRIT 41.1 % (37.0-47.0); HEMOGLOBIN 14.1 g/dL (12.0-16.0); IMM GRAN# 0.02 X1000 (0.0-0.04); IMM GRAN% 0.3 % (0.0-0.5); LYMPH# 1.66 X1000 (1.2-3.4); LYMPH% 20.8 % (20.5-51.1); MCH 31.5 PG (27-31); MCHC 34.3 g/dL (33-37); MCV 91.9 FL (81-99); MONO# 0.68 X1000 (0.11-0.59); MONO% 8.5 % (1.7-9.3); MPV 9.2 FL (7.4-10.4); NEUT# 5.44 X1000 (1.4-6.5); PLT 320 X1000 (130-400); RBC 4.47 XMIL (4.2-5.4); RDW 12.5 % (11.5-14.5); WBC 7.99 X1000 (4.8-10.8)
[2018-05-21 14:18] LABS: AGAP 14; ALB/GLOB RATIO 1.7; ALBUMIN 4.7 g/dL (3.5-5.0); ALKALINE PHOSPHATASE 112 U/L (32-104); BUN 6 mg/dL (8-22); CALCIUM 9.5 mg/dL (8.8-10.2); CHLORIDE 94 mmol/L (98-107); CK PROFILE 64 U/L (24-173); COSMO 259; CREATININE 0.5 mg/dL (0.5-0.9); ESTIMATED GFR > 60; GLUCOSE 81 mg/dL (70-104); GOT 12 U/L (10-30); GPT 14 U/L (10-36); POTASSIUM 4.4 mmol/L (3.5-5.1); SODIUM 131 mmol/L (136-145); TCO2 23 mmol/L (25-35); TOTAL BILIRUBIN 0.36 mg/dL (0.20-1.00); TOTAL PROTEIN 7.4 g/dL (6.3-8.3)
[2018-05-21 14:24] LABS: INR 0.82
[2018-05-21 14:25] LABS: PTT 30.4 Seconds (22.3-41.8)
--- NOTE | 2018-05-21 15:42 | EKG Report ---
Test Performed on : 05/21/2018 1:02:21 PM Test Reason : SYNCOPE Blood Pressure : / mmHG Vent. Rate : 085 BPM Atrial Rate : 085 BPM P-R Int : 154 ms QRS Dur : 112 ms QT Int : 398 ms P-R-T Axes : 002 -37 002 degrees QTc Int : 473 ms Normal sinus rhythm. Left axis deviation Incomplete right bundle branch block Inferior infarct , age undetermined Anterolateral infarct , age undetermined Abnormal ECG No previous ECGs available Unconfirmed Result
[2018-05-21] MEDS ORDERED: D5 1/2 NS 1,000 ML IV ONE (16:33)
--- NOTE | 2018-05-21 17:13 | Diag Imaging Result Doc PS360 ---
EXAM: CHEST-2 VIEWS HISTORY: syncope TECHNIQUE: Chest two views COMPARISON: 04/17/2017 FINDINGS: The lungs are well expanded. The heart is not enlarged. The vessels are not distended. There are no infiltrates. No pleural effusions. IMPRESSION: No acute abnormality. Electronically signed by Carlos An 05/21/2018 5:11 PM
--- NOTE | 2018-05-21 17:40 | Diag Imaging Result Doc PS360 ---
EXAM: CT HEAD W/O CONTRAST HISTORY: syncope TECHNIQUE: CT head without contrast COMPARISON: 06/11/2014 FINDINGS: No parenchymal hemorrhage. No epidural or subdural hematoma. No subarachnoid hemorrhage. There is atrophy. No mass identified on this noncontrasted exam. No hydrocephalus. No sinus opacification. IMPRESSION: 1.No hemorrhage 2.Atrophy This exam was performed using automated exposure control, adjustment of mA or kV according to patient size, and/or use of iterative reconstruction technique. Electronically signed by Carlos An 05/21/2018 5:38 PM
[2018-05-21] MEDS ORDERED: NS 500 ML IV ONE (17:55)
[2018-05-21 18:05] LABS: URINE SOURCE CLEAN CATCH
[2018-05-21 18:13] LABS: BILIRUBIN URINE NEGATIVE (NEGATIVE); BLOOD URINE TRACE (NEGATIVE); COLOR STRAW; GLUCOSE URINE 500 mg/dL (NEGATIVE); KETONE URINE NEGATIVE (NEGATIVE); LEUKOCYTES URINE NEGATIVE (NEGATIVE); NITRITE URINE NEGATIVE (NEGATIVE); PROTEIN URINE NEGATIVE (NEGATIVE); SP GRAVITY URINE < 1.001; TURBIDITY URINE CLEAR (CLEAR); UROBILINOGEN URINE NORMAL (NORMAL)
[2018-05-21 18:16] LABS: UR EPITHELIAL CELLS <10 /HPF (<10); URINE BACTERIA NEGATIVE /HPF; URINE RBC <10 /HPF (<10); URINE WBC <10 /HPF (<10)
--- NOTE | 2018-05-21 18:45 | PROVIDER DOCUMENTATION ---
This chart was entered by Sintia Booth Scribe, acting as scribe for Phan Valle CRNP. HPI-Syncope/Dizziness - General Chief Complaint: Syncope Stated Complaint: PASSED OUT Time Seen by Provider: 05/21/18 16:00 Source: patient Allergies/Adverse Reactions: Patient Allergies Allergy/AdvReac Type Severity Reaction Status Date / Time Sulfa (Sulfonamide AdvReac SWELLING Verified 06/18/14 08:36 Antibiotics) Home Medications: Home Medication List Medication Instructions Recorded Confirmed Last Taken Type Aspirin [Aspirin EC] 2 tab PO DAILY 06/11/14 06/18/14 06/18/14 History Cholecalciferol (Vitamin D3) 2,000 unit PO DAILY 06/11/14 06/18/14 06/18/14 History [D3-2000] Cyanocobalamin (Vitamin B-12) 2,000 mcg PO DAILY 06/11/14 06/18/14 06/18/14 History [Vitamin B-12] Fluoxetine [Prozac] 20 mg PO TID 06/11/14 06/18/14 06/18/14 History Gabapentin 300 mg PO HS 06/11/14 06/18/14 06/18/14 History Levothyroxine Sodium 100 mcg PO DAILY 06/11/14 06/18/14 06/18/14 History Metformin HCl 850 mg PO BID 06/11/14 06/18/14 06/18/14 History Lorane-3 Fatty Acids [Fish Oil] 1,000 mg PO DAILY 06/11/14 06/18/14 06/18/14 History Omeprazole 20 mg PO DAILY 06/11/14 06/18/14 06/18/14 History Pravastatin Sodium 20 mg PO DAILY 06/11/14 06/18/14 06/18/14 History Tramadol HCl [Ultram] 50 mg PO DIRECTED 06/18/14 06/18/14 06/17/14 History Budesonide E.r. [Entocort EC] 9 mg PO DAILY #14 capsule 09/26/16 Unknown Rx Levofloxacin [Levaquin] 500 mg PO DAILY #7 tablet 09/26/16 Unknown Rx Lisinopril 20 mg PO DAILY #30 tablet 09/26/16 Unknown Rx Metronidazole [Flagyl] 500 mg PO TID #21 tablet 09/26/16 Unknown Rx - History of Present Illness-Syncope/Dizzy Nature of Presenting Problem: Patient is a 73 year old female who presents to the ED after a syncopal episode. Patient states she was standing at [facility] and passed out. Denies fall or head injury. States, "I could feel my sugar dropping before I passed out." Patient was caught by a person in [facility]. Patient states her blood sugar was low and she received oral glucose from the pharmacy at [facility], then went to her pcp's office where it was checked and it was 69. Hx of NIDDM and takes Metformin. States that she feels better now and is non-toxic in appearance. Denies any other symptoms. Prior Episodes: reports: single episode today Onset/Duration: reports: this afternoon Timing: reports: gone now Position/Activity at time of episode: reports: standing Symptoms prior to episode: reports: none Context: reports: lost consciousness Loss of Consciousness: unsure Location of injury. (If syncope resulted in an injury.): reports: none Current Symptoms: reports: none/feels normal Review of Systems - Adult - REVIEW OF SYSTEMS - ADULT Constitutional: reports: no symptoms reported Eyes: reports: no symptoms reported Ears, Nose, Mouth & Throat: reports: no symptoms reported Cardiovascular: reports: no symptoms reported Respiratory: reports: no symptoms reported Gastrointestinal: reports: no symptoms reported Genitourinary: reports: no symptoms reported Musculoskeletal: reports: no symptoms reported Integumentary: reports: no symptoms reported Neurological: reports: syncope. denies: dizziness/vertigo, headache/migraines, numbness, seizure, slurred speech Psychiatric: reports: no symptoms reported Endocrine: reports: no symptoms reported Hematologic/Lymphatic: reports: no symptoms reported Allergic/Immunologic: reports: no symptoms reported All Other Systems: Reviewed and Negative Past History - Adult - PAST MEDICAL HISTORY-ADULT Review of Records: reports: Nursing Assessment Review, Medications Reviewed, Social history reviewed & non-contributory. Major Childhood Illnesses: reports: denies history Cardiovascular: reports: HTN Respiratory: reports: denies history Gastrointestinal: reports: GERD Obstetrical/Gynecological: reports: denies history Genitourinary: reports: kidney disease Musculoskeletal: reports: denies history Neurological: reports: CVA, Seizures/Epilepsy Psychiatric: reports: anxiety Endocrine/Immune: reports: Diabetes, thyroid disorder Other Conditions: reports: denies history - PRIOR SURGERIES/PROCEDURES Surgical/Procedure History: reports: reviewed, not pertinent, cholecystectomy, hysterectomy, gastric bypass - IMMUNIZATION STATUS Childhood Immunizations: See Nurse Assessment Flu Vaccine: See Nurse Assessment - FAMILY HISTORY Family History: reviewed, not pertinent - SOCIAL HISTORY Smoking: denies Substance Use: denies Physical Exam-General - PHYSICAL EXAM-ADULT Initial Vital Signs Reviewed: Yes - CONSTITUTIONAL General Appearance: alert, no apparent distress. negative: lethargic, slow to respond - EYES Eyes: PERRL/EOMI, pink conjunctivae - HEAD, EARS, NOSE, MOUTH & THROAT HENMT: normocephalic/atraumatic, moist mucous membranes, normal ENT inspection - NECK Neck: non-tender, full range of motion, supple, normal inspection. negative: lymphadenopathy - RESPIRATORY Respiratory: chest non-tender, lungs clear, normal breath sounds, no pleuratic chest pain, no respiratory distress, no accessory muscle use - CARDIOVASCULAR Cardiovascular: normal peripheral pulses, regular rate, rhythm, no edema, no gallop, no JVD, no murmur - GASTROINTESTINAL (ABDOMEN) Abdominal Exam: normal bowel sounds, non tender, soft, no organomegaly, no pulsatile mass. negative: distended, guarding, rigid, rebound, tenderness - MUSCULOSKELETAL Back Exam: normal inspection Extremity: normal range of motion, non-tender, normal gait, normal inspection - SKIN Integumentary: normal color, normal turgor, warm/dry. negative: cyanosis, diaphoresis, jaundice, mottled, pallor - NEUROLOGIC Neurologic: grossly normal, no motor/sensory deficits. negative: abnormal gait , aphasia, facial droop, focal weakness, motor weakness, sensory deficit - PSYCHIATRIC Psych/Mental Status: normal mood/affect, normal thought content, normal thought process, oriented x 3 Progress - PLAN OF CARE/RESULTS Progress/Plan/Lab Results: Vital Signs - 8 hr 05/21/18 12:41 Temperature 97.5 F L Pulse Rate 75 Respiratory Rate 20 Blood Pressure 150/80 O2 Sat by Pulse Oximetry 100 Laboratory Results - last 24 hr 05/21/18 05/21/18 05/21/18 12:47 12:58 12:58 WBC 7.99 RBC 4.47 Hgb 14.1 Hct 41.1 MCV 91.9 MCH 31.5 H MCHC 34.3 RDW Std Deviation 12.5 Plt Count 320 MPV 9.2 Immature Gran % (Auto) 0.3 Neut % (Auto) 68.0 Lymph % (Auto) 20.8 Cameron % (Auto) 8.5 Eos % (Auto) 1.9 Baso % (Auto) 0.5 Immature Gran # (Auto) 0.02 Neut # (Auto) 5.44 Lymph # (Auto) 1.66 Cameron # (Auto) 0.68 H Eos # (Auto) 0.15 Baso # (Auto) 0.04 PT INR PTT (Actin FS) Sodium 131 L Potassium 4.4 Chloride 94 L Carbon Dioxide 23 L Anion Gap 14 BUN 6 L Creatinine 0.5 Estimated GFR/1.73 m2 > 60 BUN/Creatinine Ratio 12 Glucose 81 POC Glucose 87 Calculated Osmolality 259 Calcium 9.5 Total Bilirubin 0.36 AST 12 ALT 14 Alkaline Phosphatase 112 H Creatine Kinase 64 Troponin T Total Protein 7.4 Albumin 4.7 Globulin 2.7 Albumin/Globulin Ratio 1.7 Plasma Lactate Urine Source Urine Color Urine Turbidity Urine pH Ur Specific [place] Urine Protein Ur Glucose (Stick) Ur Ketones (Stick) Urine Blood Urine Nitrite Urine Bilirubin Urobilinogen Dipstick Urine Leukocytes Urine WBC (Auto) Urine RBC (Auto) U Epithel Cells (Auto) Urine Bacteria (Auto) 05/21/18 05/21/18 05/21/18 12:58 12:58 13:44 WBC RBC Hgb Hct MCV MCH MCHC RDW Std Deviation Plt Count MPV Immature Gran % (Auto) Neut % (Auto) Lymph % (Auto) Cameron % (Auto) Eos % (Auto) Baso % (Auto) Immature Gran # (Auto) Neut # (Auto) Lymph # (Auto) Cameron # (Auto) Eos # (Auto) Baso # (Auto) PT 12.0 INR 0.82 PTT (Actin FS) 30.4 Sodium Potassium Chloride Carbon Dioxide Anion Gap BUN Creatinine Estimated GFR/1.73 m2 BUN/Creatinine Ratio Glucose POC Glucose 173 H D Calculated Osmolality Calcium Total Bilirubin AST ALT Alkaline Phosphatase Creatine Kinase Troponin T < 0.010 Total Protein Albumin Globulin Albumin/Globulin Ratio Plasma Lactate Urine Source Urine Color Urine Turbidity Urine pH Ur Specific [place] Urine Protein Ur Glucose (Stick) Ur Ketones (Stick) Urine Blood Urine Nitrite Urine Bilirubin Urobilinogen Dipstick Urine Leukocytes Urine WBC (Auto) Urine RBC (Auto) U Epithel Cells (Auto) Urine Bacteria (Auto) 05/21/18 05/21/18 05/21/18 16:28 17:20 17:50 WBC RBC Hgb Hct MCV MCH MCHC RDW Std Deviation Plt Count MPV Immature Gran % (Auto) Neut % (Auto) Lymph % (Auto) Cameron % (Auto) Eos % (Auto) Baso % (Auto) Immature Gran # (Auto) Neut # (Auto) Lymph # (Auto) Cameron # (Auto) Eos # (Auto) Baso # (Auto) PT INR PTT (Actin FS) Sodium Potassium Chloride Carbon Dioxide Anion Gap BUN Creatinine Estimated GFR/1.73 m2 BUN/Creatinine Ratio Glucose POC Glucose 64 L D Calculated Osmolality Calcium Total Bilirubin AST ALT Alkaline Phosphatase Creatine Kinase Troponin T Total Protein Albumin Globulin Albumin/Globulin Ratio Plasma Lactate 4.8 H Urine Source CLEAN CATCH Urine Color STRAW Urine Turbidity CLEAR Urine pH 5.0 Ur Specific [place] < 1.001 Urine Protein NEGATIVE Ur Glucose (Stick) 500 A Ur Ketones (Stick) NEGATIVE Urine Blood TRACE A Urine Nitrite NEGATIVE Urine Bilirubin NEGATIVE Urobilinogen Dipstick NORMAL Urine Leukocytes NEGATIVE Urine WBC (Auto) <10 Urine RBC (Auto) <10 U Epithel Cells (Auto) <10 Urine Bacteria (Auto) NEGATIVE Orders Category Date Time Status Cardiac Monitoring DIRECTED Care 05/21/18 12:57 Active Glucose Finger Stick [FSBS/Accucheck Result] ORDERED Care 05/21/18 16:36 Active Orthostatic Vital Signs NOW Care 05/21/18 17:54 Active Oxygen Therapy- ED Nursing DIRECTED Care 05/21/18 12:57 Active Saline Loc NOW Care 05/21/18 12:57 Active CHEST-2 VIEWS [RAD] Stat Exams 05/21/18 16:[address] HEAD W/O CONTRAST [CT] Stat Exams 05/21/18 16:33 Completed CBC WITH ELECTRONIC DIFF [HEME] Stat Lab 05/21/18 12:58 Completed CK PROFILE [SP CHEM] Stat Lab 05/21/18 12:58 Completed COMPREHENSIVE METABOLIC PANEL [CHEM] Stat Lab 05/21/18 12:58 Completed LACTATE, PLASMA [CHEM] Stat Lab 05/21/18 17:20 Completed PROTIME WITH INR [COAG] Stat Lab 05/21/18 12:58 Completed PTT [COAG] Stat Lab 05/21/18 12:58 Completed TROPONIN T Stat Lab 05/21/18 12:58 Completed UA NIMS W/REFLEX CULT [URINALYSIS] Stat Lab 05/21/18 17:50 Completed 0.9% Sodium Chloride Inj [Ns] 500 ml Med 05/21/18 17:55 Discontinued IV 999 mls/hr Dextrose 5%-0.45% NaCl Inj [D5 1/2 Ns] 1,000 ml Med 05/21/18 16:33 Active IV 100 mls/hr Altered Mental Status Stat Oth 05/21/18 12:57 Ordered EKG [EKG] Stat Ther 05/21/18 12:57 Draft Discussed case with Dr. Patel who recommends 500 ml bolus and paging HPS for admission. Admitting HPS paged. Pt in aware of plan and is in agreement. Discussed case with ALBERTO Pérez MANAGER AGRICULTURAL who accepted admission. Result Diagrams: 05/21/18 12:58 05/21/18 12:58 - XRAY 1 XRAY Study: Chest ([facility] [address] [facility], [address], [place] [address] Department of Imaging Patient: PEDRO FERRARODM Date: #: [id number] : 8ADM Status: REG ERAcct#: [id number] Age/Sex: 73/FRoom/Bed: Loc: ED Ordering Physician: Phan Valle Family Physician: Mil Barrera MD Reason for Procedure: syncope Signed EXAM: CHEST-2 VIEWS HISTORY: syncope TECHNIQUE: Chest two views COMPARISON: 04/17/2017 FINDINGS: The lungs are well expanded. The heart is not enlarged. The vessels are not distended. There are no infiltrates. No pleural effusions. IMPRESSION: No acute abnormality. Electronically signed by Carlos An 05/21/2018 5:11 PM 05/21/18 171 Interpreting Physician: Carlos An MD Dictated Date/Time: 05/21/18 171 cc: Phan Valle; Mil Barrera MD) - CT/MRI 1 CT Study: Head ([facility] [address], [address], [place] [address] Department of Imaging Patient: PEDRO FERRARO Date: MR#: [id number] : 1945DM Status: REG [facility]#: [id number] Age/Sex: 73/FRoom/Bed: Loc: ED Ordering Physician: Phan Valle Family Physician: Mil Barrera MD Reason for Procedure: syncope Signed EXAM: CT HEAD W/O CONTRAST HISTORY: syncope TECHNIQUE: CT head without contrast COMPARISON: 06/11/2014 FINDINGS: No parenchymal hemorrhage. No epidural or subdural hematoma. No subarachnoid hemorrhage. There is atrophy. No mass identified on this noncontrasted exam. No hydrocephalus. No sinus opacification. IMPRESSION: 1.No hemorrhage 2.Atrophy This exam was performed using automated exposure control, adjustment of mA or kV according to patient size, and/or use of iterative reconstruction technique. Electronically signed by Carlos An 05/21/2018 5:38 PM 05/21/18 1738 Interpreting Physician: Carlos An MD Dictated Date/Time: 05/21/18 1736 cc: Phan Valle; Mil Barrera MD) - CONSULTS/PCP/HOSPITALIST Notification #1 *Consult/PCP/Hospitalist*: ALBERTO Pérez NP Time Discussed: 18:13 Departure - Departure Date of Disposition Decision: 05/21/18 Time of Disposition Decision: 18:44 DIAGNOSIS: Lactic acidosis due to diabetes mellitus, Hypoglycemia Syncope Qualifiers: Syncope type: unspecified Qualified Code(s): R55 - Syncope and collapse Disposition: ADMITTED INPATIENT [address] [facility] Medical Emergency: Emergent Condition: Stable Referrals and Follow-Ups: Mil Barrera MD [Primary Care Provider] - - Critical Care Note This patient required my direct & personal management of CC.: No Attestation - Physician/ MELANIE Attestation Patient care was provided by Advanced Practice Provider:: Yes Advanced Practice Provider:: Phan Valle Advanced Practice Provider documentation review:: The Mid-level provider documentation, treatment plan and medical decision making was reviewed by the physician who agrees with all treatment and medical decision making by the MLP. The physician spent face to face time with patient:: No Advanced Practice Provider documentation review:: Supervising physician onsite and consulted in the evaluation and care of this patient. The physician did not have a face to face encounter with the patient. This chart was documented by the indicated scribe, (Sintia Booth Scribe) and accurately reflects the services I performed and decisions made by me, Phan Valle CRNP, as attested by the provider's signature.
[2018-05-21] MEDS ORDERED: D5 NS 1,000 ML IV ONE (23:11)
[2018-05-22] MEDS ORDERED: TYLENOL PO PRN (00:35)
[2018-05-22] MEDS ORDERED: ZOFRAN IV PRN (00:35)
--- NOTE | 2018-05-22 03:53 | HISTORY AND PHYSICAL ---
CHIEF COMPLAINT: Syncope. HISTORY OF PRESENT ILLNESS: This is a 73-year-old female. She came from [facility] after she passed out. She has had issues with her blood sugars being low. She takes metformin 850 b.i.d., but it had been attempted in the past to decrease her metformin, but they have never really lost so patient stated her blood sugar was low and she received oral glucose. She went to her PCP, who is I believe Dr. Barrera, and they checked her sugar and it was low and they told her to go to the ER for evaluation. In the ER, she had a low blood sugar and I think she was given additional treatment. Repeat blood sugar went up from 64 to 219 and then it dropped to 117 and then it dropped again to 77. Lactate was mildly elevated, but may have been related to her hypoglycemia and fainting episode. In any case, she was placed on observation for recurrent hypoglycemia. The patient had no other symptoms per se. She has not had any other changes in her medications. PAST MEDICAL HISTORY: 1. Type 2 diabetes noninsulin dependent. 2. Hypothyroidism. 3. Anxiety, depression. 4. Neuropathy. 5. Dyslipidemia. 6. COPD. 7. She has Crohn's disease. PAST SURGICAL HISTORY: I do not think she has had any major issues. 1. Cholecystectomy. 2. Hysterectomy. 3. Back surgeries. ALLERGIES: Sulfa. FAMILY HISTORY: No diabetes. No cancer. SOCIAL HISTORY: She denies tobacco or ethanol. She lives with her daughter, family members. MEDICATION: She currently takes aspirin, vitamin D3, vitamin B12, Prozac 20 t.i.d., gabapentin 300 at bedtime, Synthroid 100 daily, metformin 850 b.i.d., fish oil 1 g, Prilosec 20, pravastatin 20, tramadol p.r.n., Entocort 9 daily, lisinopril 20. REVIEW OF SYSTEMS: Otherwise negative times a 12 point review of systems. PHYSICAL EXAMINATION: VITAL SIGNS: Blood pressure 150/80, heart rate of 75, respiratory rate 20, temperature 97.5 degrees, 100% saturation. GENERAL: A well-developed female in no acute distress. HEENT: Head exam was normocephalic, atraumatic. Eye exam: Pupils equal, round, reactive to light. Extraocular movements were intact. Ears, nose, and throat showed moist mucous membranes. CARDIOVASCULAR: Regular rate and rhythm. PULMONARY: Bilateral breath sounds clear to auscultation. GASTROINTESTINAL: Soft, nontender, nondistended. Bowel sounds are positive. NEUROLOGICAL: Cranial nerves 2-12 were intact. MUSCULOSKELETAL: Was 5/5 in all 4 extremities. SKIN: Clean, dry, warm. No rashes noted. No peripheral edema noted. LABORATORY DATA: Her white count 7, hemoglobin and hematocrit 14 and 41, platelets 320,000. Coagulation studies normal. Sodium 131, sugar 116. Urine was clear. ASSESSMENT: This is a 73-year-old female who presents with recurrent hypoglycemia on metformin therapy with lactic acidosis. 1. Recurrent hypoglycemia. We will monitor on D5 until her sugar is stabilized. When she is off D5, we will continue to monitor. We may have to adjust her metformin down. We will check an A1c and follow. 2. Hypertension. Continue her regular medications and monitor her blood pressure. 3. Hypothyroidism. We will check her thyroid function. Continue Synthroid and monitor. 4. Dyslipidemia, appears to be stable. Continue regular medications. 5. Crohn's, appears to be overall controlled. DISPOSITION: Hopefully discharge tomorrow if her sugar is stabilized. cc: MD Mil Rivera MD
[2018-05-22 06:18] LABS: BASO# 0.02 X1000 (0.0-0.2); BASO% 0.3 % (0.0-0.8); EOS# 0.13 X1000 (0.0-0.7); EOS% 2.1 % (0.0-10.0); HEMOGLOBIN 12.5 g/dL (12.0-16.0); LYMPH# 1.73 X1000 (1.2-3.4); LYMPH% 28.5 % (20.5-51.1); MCH 30.9 PG (27-31); MCHC 33.8 g/dL (33-37); MCV 91.4 FL (81-99); MONO# 0.67 X1000 (0.11-0.59); MPV 9.2 FL (7.4-10.4); NEUT# 3.53 X1000 (1.4-6.5); NEUT% 58.1 % (42.2-75.2); PLT 291 X1000 (130-400); RBC 4.05 XMIL (4.2-5.4); WBC 6.08 X1000 (4.8-10.8)
[2018-05-22 06:27] LABS: HEMOGLOBIN A1C 5.1 % (4.8-6.0)
[2018-05-22 06:43] LABS: AGAP 10; BUN 4 mg/dL (8-22); CALCIUM 8.8 mg/dL (8.8-10.2); CHLORIDE 101 mmol/L (98-107); COSMO 271; CREATININE 0.5 mg/dL (0.5-0.9); ESTIMATED GFR > 60; GLUCOSE 112 mg/dL (70-104); POTASSIUM 3.6 mmol/L (3.5-5.1); SODIUM 137 mmol/L (136-145); TCO2 26 mmol/L (25-35)
[2018-05-22 15:42] VITALS: BP 187/79
--- NOTE | 2018-05-23 02:42 | DISCHARGE SUMMARY ---
ADMISSION DATE: 05/21/2018 DISCHARGE DATE: 05/22/2018 DISCHARGE DIAGNOSES: Recurrent hypoglycemia. HISTORY AND HOSPITAL COURSE: This is a pleasant 73-year-old female, who has issues up and down a little bit with her metformin and sugars. She came in for a presyncope-syncope episode, with a low blood sugar. This was sustained in the ER, despite D5. Her lactate level was elevated at 4.6, without a clear source. I am not sure if that is just related to stress reaction. After hydration, her lactate level was normal. Kidney function was intact. She is on 850 b.i.d. of metformin, but apparently that is a bit too much. Her sugar dropped after D5, still to 77, so we watched her overnight on a D5 infusion, took her off the D5 infusion. The last two sugars have been 113 and 209, and I feel she is comfortable to go home. Recurrent hypoglycemia is her discharge diagnosis. DISCHARGE MEDICATIONS: Have not been validated, but aspirin 81, vitamin D3, vitamin B12, Prozac 20 t.i.d., gabapentin 300 at bedtime, Synthroid 100 daily, fish oil 1 daily, Prilosec 20 daily, pravastatin 20 daily, Ultram p.r.n., Entocort 9 daily, lisinopril 20 daily, and metformin will be decreased to 500 b.i.d. DISCHARGE INSTRUCTIONS: She will monitor her sugars and follow up with her PCP, who is Dr. Mil Barrera. This is an observation discharge note. cc: Hector Recinos MD
== END 2018-05-22 15:53 | disposition home or self-care (01) ==
LOC: ED 12:30 → INTOOBSV 23:30 → SUATTDRO 23:30 → EDIPHOLD 23:30 → 4N 05-22 08:23
PROVIDERS: ATTEND Internal Medicine
CPT/HCPCS: 70450; 71020; 71046; 80048; 80053; 81001; 82550; 82947; 82948; 83036; 83605; 84484; 85025; 85610; 85730; 93005; 96365; 96366; 99285; J7040; J7042; XXXXX